=== PATIENT | female | born 1960 | race Caucasian/White ===

== ENCOUNTER 2017-05-10 10:37 | Emergency (ER) | payer OTHER ==
[~2017-05-10] VITALS: Ht 165.1 cm; Wt 47.0 kg
[~2017-05-10 10:37] MED LIST: ASPI-664 PO; BUPR-34 PO; CARV6.25 PO; HYD25 PO; LEVO25TA53 PO; SIMV40TA3 PO
[2017-05-10 10:41] VITALS: Ht 165.1 cm; Wt 47.0 kg
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
--- NOTE | 2017-05-10 12:36 | RADRPT ---
PROCEDURE: XR foot CLINICAL INDICATION: Pain. TECHNIQUE: AP, oblique and lateral views of the left foot were performed. COMPARISON: None. FINDINGS: There is an acute, mildly displaced, left fifth toe, proximal phalanx base fracture. No additional fractures are present. Alignment is near anatomic. IMPRESSION: Acute, mildly displaced, left, fifth toe, proximal phalanx base fracture. No additional fractures. Near anatomic alignment. RPTAT: PP. .Magali Patrick MD, MD Date Time Electronically viewed and signed by .Magali Patrick MD, on 05/10/2017 12:36 .F/
[2017-05-10] MEDS ORDERED: IBUP-1542 PO (12:43)
[2017-05-10 12:50] VITALS: BP 112/70; PULSE 77; RESP 19; TEMP 98.4
== END 2017-05-10 12:51 | disposition home or self-care (01) ==
LOC: FTE 10:37
DX: S92.532A Displaced fracture of distal phalanx of left lesser toe(s), initial encounter for closed fracture (principal); I25.10 Atherosclerotic heart disease of native coronary artery without angina pectoris; W22.8XXA Striking against or struck by other objects, initial encounter; Y92.9 Unspecified place or not applicable; Z87.891 Personal history of nicotine dependence; Z79.82 Long term (current) use of aspirin